=== PATIENT | male | born 1990 | race Two or more races ===

== ENCOUNTER 2020-07-10 11:16 | Emergency (ER) | payer OTHER ==
[~2020-07-10] VITALS: Ht 172.7 cm; Wt 63.5 kg
[2020-07-10 11:32] VITALS: BP 150/72
== END 2020-07-10 11:26 | disposition home or self-care (01) ==
LOC: EDBD 11:16 → ER 11:16
DX: F41.9 Anxiety disorder, unspecified (principal)